=== PATIENT | male | born 1955 | race Caucasian/White ===

== ENCOUNTER 2025-09-27 12:25 | Inpatient (IN) | payer OTHER ==
[2025-09-27] MEDS ORDERED: Senokot S 8.6-50 MG TAB PO PRN (12:58)
[2025-09-27] MEDS ORDERED: Bisacodyl 10 MG SUPP PR PRN (12:58)
[2025-09-27] MEDS: oxyCODONE 5 MG TAB PO PRN (18:52)
[2025-09-27] MEDS: Famotidine 20 MG TAB PO SCH (20:29)
[2025-09-28 05:58] LABS: AST (SGOT) 25 U/L (11-34); Albumin 3.6 g/dL (3.1-4.5); Alkaline Phosphatase 84 U/L (40-110); Anion Gap 15 mmol/L (10-20); BUN (Urea Nitrogen) 18 mg/dL (8.4-25.7); Bilirubin, Total 1.0 mg/dL (0.3-1.2); Calc. Creatinine Clearance 106 mL/min (70-130); Calcium 8.9 mg/dL (7.8-10.44); Carbon Dioxide 24 mmol/L (23-31); Chloride 104 mmol/L (98-107); Globulin 3.3 g/dL (2.4-3.5); Glucose 96 mg/dL (80-115); Potassium 4.0 mmol/L (3.5-5.1); Sodium 139 mmol/L (136-145)
[2025-09-28 06:07] LABS: Hematocrit 34.0 % (42.0-52.0); Hemoglobin 12.1 g/dL (14.0-18.0); MDiff Complete? YES; Mean Corpuscular Hemoglobin 31.7 pg (27.0-31.0); Mean Corpuscular Volume 89.3 fl (78.0-98.0); Platelet Adequacy Comment Appears Adequate; Platelet Count 225 10x3/uL (130-400); Red Blood Cell (RBC) Count 3.81 mill/uL (4.70-6.10); White Blood Cell (WBC) Count 8.6 10x3/uL (4.8-10.8)
[2025-09-28 06:29] LABS: ALT (SGPT) 26 U/L (Less than 45)
[2025-09-28] MEDS: Calcium Carbonate 600 MG + Vit D TAB PO SCH (07:21)
[2025-09-28] MEDS: Enoxaparin 40 MG (0.4 mL) SYRINGE SC SCH (08:32)
[2025-09-28] MEDS: Multivitamin W/ Minerals 1 TAB PO SCH (08:33)
[2025-09-28] MEDS: Acetaminophen 325 MG TAB PO PRN (10:04)
[2025-09-28] MEDS: Melatonin 3 MG TAB PO SCH (20:15)
[2025-09-30] MEDS ORDERED: Acetaminophen 325 MG TAB PO PRN (09:06)
[2025-09-30] MEDS: oxyCODONE 5 MG TAB PO SCH (11:39)
[2025-10-01] MEDS: Acetaminophen 325 MG TAB PO SCH (09:04)
[2025-10-03 16:36] VITALS: BMI 23.6
[2025-10-04] MEDS: Famotidine 20 MG TAB PO SCH (09:26)
[2025-10-06 15:25] VITALS: BMI 23.6
[2025-10-07 06:11] LABS: #Basophils 0.2 thou/uL (0.0-0.2); #Eosinophils 0.3 thou/uL (0.0-0.7); #Lymphocytes 1.8 thou/uL (1.20-3.40); #Monocytes 0.7 thou/uL (0.11-0.59); #Neutrophils 2.7 thou/uL (1.40-6.50); %Basophils 4.1 % (0.0-1.0); %Eosinophils 4.7 % (0.0-10.0); %Lymphocytes 31.4 % (21.0-51.0); %Monocytes 12.0 % (0.0-10.0); %Neutrophils 47.8 % (42.0-75.0); Hematocrit 33.2 % (42.0-52.0); Hemoglobin 11.8 g/dL (14.0-18.0); Mean Corpuscular Hemoglobin 32.0 pg (27.0-31.0); Mean Corpuscular Volume 90.0 fl (78.0-98.0); Platelet Count 293 10x3/uL (130-400); Red Blood Cell (RBC) Count 3.68 mill/uL (4.70-6.10); White Blood Cell (WBC) Count 5.6 10x3/uL (4.8-10.8)
[2025-10-07 06:13] LABS: AST (SGOT) 35 U/L (11-34); Albumin 3.7 g/dL (3.1-4.5); Alkaline Phosphatase 151 U/L (40-110); Anion Gap 14 mmol/L (10-20); BUN (Urea Nitrogen) 16 mg/dL (8.4-25.7); Bilirubin, Total 0.7 mg/dL (0.3-1.2); Calc. Creatinine Clearance 92 mL/min (70-130); Calcium 9.4 mg/dL (7.8-10.44); Carbon Dioxide 28 mmol/L (23-31); Chloride 101 mmol/L (98-107); Globulin 3.4 g/dL (2.4-3.5); Glucose 91 mg/dL (80-115); Potassium 3.9 mmol/L (3.5-5.1); Sodium 139 mmol/L (136-145)
[2025-10-07 06:26] LABS: ALT (SGPT) 38 U/L (Less than 45)
[2025-10-08 07:55] VITALS: TEMP 97.5
[2025-10-08 09:24] VITALS: BP 164/67
== END 2025-10-08 09:50 | disposition home or self-care (01) | DRG 946 ==
LOC: NAV ACUTE 14:41
PROVIDERS: ADMIT Student in an Organized Health Care Education/Training Program; ATTEND Student in an Organized Health Care Education/Training Program
PROC: F07Z5FZ Bed Mobility Treatment using Assistive, Adaptive, Supportive or Protective Equipment (ICD-10-PCS; principal; 2025-10-07)
DX: R53.81 Other malaise (principal); I10 Essential (primary) hypertension; K76.0 Fatty (change of) liver, not elsewhere classified
CPT/HCPCS: 36415; 80053; 85025; J1650